=== PATIENT | male | born 1975 | race Caucasian/White ===

== ENCOUNTER 2018-12-31 11:12 | Observation (INO) | payer SELFPAY ==
[2018-12-31] MEDS ORDERED: Aspirin 81 MG Tab.Chew PO ONE (11:23)
[2018-12-31] MEDS ORDERED: Sodium Chloride 0.9% 10 ML Syringe FLUSH PRN (11:24)
[2018-12-31] MEDS ORDERED: Sodium Chloride 0.9% 2.5 ML Syringe FLUSH PRN (11:24)
--- NOTE | 2018-12-31 11:26 | EDM.PDOC ---
ED HPI GENERAL MEDICAL PROBLEM - General Stated Complaint: SOB Time Seen by Provider: 12/31/18 11:18 Source of Information: Reports: Patient History Limitations: Reports: No Limitations - History of Present Illness INITIAL COMMENTS - FREE TEXT/NARRATIVE: History of present illness: []Was sitting in his truck and hour ago when he started having left-sided 6/10 on radiating chest pain with sweating. She has a history of high blood pressure and high cholesterol but has never had any cardiac history or previous episodes of chest pain. Review of systems: As per history of present illness and below otherwise all systems reviewed and negative. Past medical history: As per history of present illness and as reviewed below otherwise noncontributory. Surgical history: As per history of present illness and as reviewed below otherwise noncontributory. Social history: No reported history of drug or alcohol abuse. Family history: As per history of present illness and as reviewed below otherwise noncontributory. Physical exam: General: Well developed, well nourished in NAD HEENT: Atraumatic, normocephalic, pupils reactive, negative for conjunctival pallor or scleral icterus, mucous membranes moist, throat clear, neck supple, nontender, trachea midline. Lungs: Clear to auscultation, breath sounds equal bilaterally, chest nontender. Heart: S1S2, regular, negative for clicks, rubs, or JVD. Abdomen: NABS, Soft, nondistended, nontender. Negative for masses or hepatosplenomegaly. Negative for costovertebral tenderness. Pelvis: Stable nontender. Genitourinary: Deferred. Rectal: Deferred. Extremities: Atraumatic, negative for cords or calf pain. Neurovascular unremarkable. Neuro: Awake, alert, oriented. Cranial nerves II through XII unremarkable. Cerebellum unremarkable. Motor and sensory unremarkable throughout. Exam nonfocal. Skin:warm and dry Diagnostics: EKG, chest x-ray, CBC, chemistry, troponin, Therapeutics: Aspirin, nitroglycerin, Toradol, morphine Zofran ED Course: Improved Impression: Acute coronary syndrome Prescriptions: None Plan: Admit to hospitalist for rule out and further workup Definitive disposition and diagnosis as appropriate pending reevaluation and review of above. Chest Pain Score (Numeric/FACES): 0 - Related Data Allergies Allergy/AdvReac Type Severity Reaction Status Date / Time No Known Allergies Allergy Verified 12/31/18 11:23 Home Meds: Home Meds . [No Known Home Meds] 12/31/18 [History] ED ROS GENERAL - Review of Systems Review Of Systems: See Below ED EXAM, GENERAL - Physical Exam Exam: See Below Course - Vital Signs Last Recorded V/S: Last Vital Signs Temp 96.8 F 12/31/18 11:23 Pulse 75 12/31/18 13:00 Resp 18 12/31/18 11:38 BP 140/93 H 12/31/18 13:00 Pulse Ox 91 L 12/31/18 13:00 - Orders/Labs/Meds Orders: Active Orders 24 hr Category Date Time Status Patient Status [ADT] Stat ADT 12/31/18 12:40 Active Cardiac Monitoring [RC] . DIRECTED Care 12/31/18 12:55 Active EKG Documentation Completion [RC] STAT Care 12/31/18 11:24 Active Nitroglycerin [Nitrostat] Med 12/31/18 11:23 Active 0.4 mg SL Q5M PRN Sodium Chloride 0.9% [Saline Flush] Med 12/31/18 11:24 Active 10 ml FLUSH ASDIRECTED PRN Sodium Chloride 0.9% [Saline Flush] Med 12/31/18 11:24 Active 2.5 ml FLUSH ASDIRECTED PRN Saline Lock Insert [OM.PC] Stat Oth 12/31/18 11:24 Ordered Medication Orders Enoxaparin Sodium (Lovenox) 40 mg SUBCUT Q24H ETHAN Nitroglycerin (Nitrostat) 0.4 mg SL Q5M PRN PRN Reason: Chest Pain Last Admin: 12/31/18 12:50 Dose: 0.4 mg Admin: 12/31/18 11:33 Dose: 0.4 mg Sodium Chloride (Saline Flush) 10 ml FLUSH ASDIRECTED PRN PRN Reason: Keep Vein Open Last Admin: 12/31/18 11:34 Dose: 10 ml Sodium Chloride (Saline Flush) 2.5 ml FLUSH ASDIRECTED PRN PRN Reason: Keep Vein Open Last Admin: 12/31/18 11:34 Dose: 2.5 ml Labs: Laboratory Tests 12/31/18 12/31/18 Range/Units 11:28 11:28 WBC 8.61 (4.0-11.0) K/uL RBC 5.62 (4.50-5.90) M/uL Hgb 17.2 H (13.0-17.0) g/dL Hct 51.9 H (38.0-50.0) % MCV 92.3 (80.0-98.0) fL MCH 30.6 (27.0-32.0) pg MCHC 33.1 (31.0-37.0) g/dL RDW Std Deviation 42.8 (28.0-62.0) fl RDW Coeff of Odell 13 (11.0-15.0) % Plt Count 206 (150-400) K/uL MPV 10.90 (7.40-12.00) fL Neut % (Auto) 70.5 (48.0-80.0) % Lymph % (Auto) 17.0 (16.0-40.0) % [place] % (Auto) 10.6 (0.0-15.0) % Eos % (Auto) 1.3 (0.0-7.0) % Baso % (Auto) 0.6 (0.0-1.5) % Neut # (Auto) 6.1 H (1.4-5.7) K/uL Lymph # (Auto) 1.5 (0.6-2.4) K/uL [place] # (Auto) 0.9 H (0.0-0.8) K/uL Eos # (Auto) 0.1 (0.0-0.7) K/uL Baso # (Auto) 0.1 (0.0-0.1) K/uL Nucleated RBC % 0.0 /100WBC Nucleated RBCs # 0 K/uL Sodium 138 (136-148) mmol/L Potassium 4.6 (3.5-5.1) mmol/L Chloride 101 (98-107) mmol/L Carbon Dioxide 27.0 (21.0-32.0) mmol/L BUN 11 (7.0-18.0) mg/dL Creatinine 1.0 (0.8-1.3) mg/dL Est Cr Clr Drug Dosing 98.35 mL/min Estimated GFR (MDRD) > 60.0 ml/min Glucose 103 (74-106) mg/dL Calcium 8.9 (8.5-10.1) mg/dL Total Bilirubin 0.3 (0.2-1.0) mg/dL AST 10 L (15-37) IU/L ALT 46 (14-63) IU/L Alkaline Phosphatase 39 L (46-116) U/L Troponin I < 0.050 (0.000-0.056) ng/mL Total Protein 7.5 (6.4-8.2) g/dL Albumin 4.0 (3.4-5.0) g/dL Globulin 3.5 (2.6-4.0) g/dL Albumin/Globulin Ratio 1.1 (0.9-1.6) Meds: Medications Generic Name Dose Route Start Last Admin Trade Name Devenq PRN Reason Stop Dose Admin Enoxaparin Sodium 40 mg 12/31/18 13:45 Lovenox SUBCUT Q24H ETHAN Nitroglycerin 0.4 mg 12/31/18 11:23 12/31/18 12:50 Nitrostat SL 0.4 mg Q5M PRN Administration Chest Pain Sodium Chloride 10 ml 12/31/18 11:24 12/31/18 11:34 Saline Flush FLUSH 10 ml ASDIRECTED PRN Administration Keep Vein Open Sodium Chloride 2.5 ml 12/31/18 11:24 12/31/18 11:34 Saline Flush FLUSH 2.5 ml ASDIRECTED PRN Administration Keep Vein Open Discontinued Medications Generic Name Dose Route Start Last Admin Trade Name Devenq PRN Reason Stop Dose Admin Aspirin 324 mg 12/31/18 11:23 12/31/18 11:32 Aspirin PO 12/31/18 11:24 324 mg ONETIME ONE Administration Ketorolac Tromethamine 30 mg 12/31/18 12:35 12/31/18 12:48 Toradol IVPUSH 12/31/18 12:36 30 mg ONETIME ONE Administration Morphine Sulfate 2 mg 12/31/18 11:42 12/31/18 11:49 Morphine IVPUSH 12/31/18 11:43 2 mg ONETIME ONE Administration Nitroglycerin 1 gm 12/31/18 13:30 12/31/18 13:37 Nitro-Bid 2% TOP 12/31/18 13:31 1 gm ONETIME ONE Administration Nitroglycerin Confirm 12/31/18 13:31 12/31/18 13:37 Nitro-Bid 2% Administered 12/31/18 13:32 Not Given Dose 1 gm .ROUTE .STK-MED ONE Ondansetron HCl 4 mg 12/31/18 11:42 12/31/18 11:53 Zofran IVPUSH 12/31/18 11:43 4 mg ONETIME ONE Administration Departure - Departure Time of Disposition: 13:43 Disposition: Refer to Observation Condition: Good Clinical Impression: Chest pain Qualifiers: Chest pain type: unspecified Qualified Code(s): R07.9 - Chest pain, unspecified - My Orders Last 24 Hours: My Active Orders 12/31/18 11:23 Nitroglycerin [Nitrostat] 0.4 mg SL Q5M PRN 12/31/18 11:24 EKG Documentation Completion [RC] STAT Sodium Chloride 0.9% [Saline Flush] 10 ml FLUSH ASDIRECTED PRN Sodium Chloride 0.9% [Saline Flush] 2.5 ml FLUSH ASDIRECTED PRN Saline Lock Insert [OM.PC] Stat 12/31/18 12:40 Patient Status [ADT] Stat 12/31/18 12:55 Cardiac Monitoring [RC] . DIRECTED - Assessment/Plan Last 24 Hours: My Active Orders 12/31/18 11:23 Nitroglycerin [Nitrostat] 0.4 mg SL Q5M PRN 12/31/18 11:24 EKG Documentation Completion [RC] STAT Sodium Chloride 0.9% [Saline Flush] 10 ml FLUSH ASDIRECTED PRN Sodium Chloride 0.9% [Saline Flush] 2.5 ml FLUSH ASDIRECTED PRN Saline Lock Insert [OM.PC] Stat 12/31/18 12:40 Patient Status [ADT] Stat 12/31/18 12:55 Cardiac Monitoring [RC] . DIRECTED
[2018-12-31] MEDS: Nitroglycerin 0.4 MG Tab.SL SL PRN ×2 (11:33→12:50)
[2018-12-31] MEDS ORDERED: Morphine 2 MG/ML Syringe IVPUSH ONE (11:42)
[2018-12-31] MEDS ORDERED: Ondansetron 4 MG/2 ML SDV IVPUSH ONE (11:42)
[2018-12-31 12:22] LABS: BLOOD UREA NITROGEN,BUN 11 mg/dL (7.0-18.0); CHLORIDE,CL 101 mmol/L (98-107); GLUCOSE RANDOM 103 mg/dL (74-106); POTASSIUM,K 4.6 mmol/L (3.5-5.1); SODIUM,NA 138 mmol/L (136-148)
[2018-12-31] MEDS ORDERED: Ketorolac 30 MG/ML SDV IVPUSH ONE (12:35)
--- NOTE | 2018-12-31 12:42 | CR ---
INDICATION: Chest pain. Left arm numbness. TECHNIQUE: AP portable chest x-ray. FINDINGS: Heart size is within normal limits. Lungs are clear without infiltrate or consolidation. Degenerative changes both AC joints. Mild linear atelectasis or scarring in the left lung base. Chest otherwise negative without acute disease. Dictated by Jose Nobles MD @ Dec 31 2018 12:40PM Signed by Dr. Jose Nobles @ Dec 31 2018 12:40PM
[2018-12-31] MEDS ORDERED: Nitroglycerin 2% Oint 1 GM UD Packet TOP ONE (13:30)
[2018-12-31] MEDS ORDERED: Nitroglycerin 2% Oint 1 GM UD Packet ONE (13:31)
--- NOTE | 2018-12-31 13:42 | PCM.HP.2 ---
H&P History of Present Illness - General Date of Service: 12/31/18 Admit Problem/Dx: Admission Diagnosis/Problem Admission Diagnosis/Problem Chest pain - History of Present Illness Initial Comments - Free Text/Narative: patient is a 43-year-old male with a significant past medical history of hypertension and hypercholesterolemia presenting today after experiencing left- sided chest pain with left arm numbness for roughly one hour. Patient states one hour ago he had a 6 out of 10 pressure-like sensation behind the left nipple with radiation of pain into left arm with numbness. States he has never experienced this type of sensation or pain before; and has never had any significant cardiac history. Patient did have momentary sensation of shortness of breath which had resolved as pain had resolved. Otherwise denies any new medications or changes in medical history. Patient denies any fevers, chills, body aches. Denies any diarrhea, constipation. Does endorse drinking 6-12 beers per night. Has not smoked cigarettes or use any other illicit drugs since 1997. Patient does endorse some history of mild anxiety; but cannot recall any episodes of panic attacks or anxiety attacks recently; does mention having some increased stress in his life but cannot recall any particular trigger at this time. Bedside: patient endorses at bedside reduction in pain; states it's now a 1 or 2 out of 10 in the same area. Denies any shortness of breath. States he feels comfortable and stable right now. Has no other issues or complaints at this time. Chest Pain Score (Numeric/FACES): 0 - Related Data Allergies/Adverse Reactions: Allergies Allergy/AdvReac Type Severity Reaction Status Date / Time No Known Allergies Allergy Verified 12/31/18 11:23 Home Medications: Home Meds . [No Known Home Meds] 12/31/18 [History] Past Medical History Cardiovascular History: Reports: High Cholesterol, Hypertension - Infectious Disease History Infectious Disease History: Reports: Chicken Pox - Past Surgical History Cardiovascular Surgical History: Reports: None Other Musculoskeletal Surgeries/Procedures:: Left ACL and Left thigh surgery Social & Family History - Family History Family Medical History: Noncontributory - Tobacco Use Smoking Status *Q: Former Smoker Years of Tobacco use: 30 Packs/Tins Daily: 1 Used Tobacco, but Quit: Yes Month/Year Tobacco Last Used: 21 Second Hand Smoke Exposure: No - Caffeine Use Caffeine Use: Reports: Tea - Alcohol Use Days Per Week of Alcohol Use: 1 Number of Drinks Per Day: 1 Total Drinks Per Week: 1 - Recreational Drug Use Recreational Drug Use: No H&P Review of Systems - Review of Systems: Review Of Systems: See Below General: Reports: No Symptoms. Denies: Fever, Chills, Malaise HEENT: Reports: No Symptoms Pulmonary: Reports: No Symptoms. Denies: Shortness of Breath, Wheezing, Cough Cardiovascular: Reports: Chest Pain (left chest : improving 04/23 ). Denies: Palpitations, Dyspnea on Exertion, Edema, Lightheadedness Gastrointestinal: Denies: Abdominal Pain, Constipation, Diarrhea, Decreased Appetite, Nausea Genitourinary: Reports: No Symptoms. Denies: Dysuria, Frequency, Burning, Pain Musculoskeletal: Denies: Neck Pain, Shoulder Pain, Arm Pain, Back Pain, Muscle Pain Skin: Reports: No Symptoms Psychiatric: Reports: Anxiety. Denies: Confusion, Depression Neurological: Reports: Headache. Denies: Confusion, Dizziness Exam - Exam Exam: See Below - Vital Signs Vital Signs: Last Vital Signs Temp 96.8 F 12/31/18 11:23 Pulse 75 12/31/18 13:00 Resp 18 12/31/18 11:38 BP 140/93 H 12/31/18 13:00 Pulse Ox 91 L 12/31/18 13:00 Weight: 216 lb 3.175 oz - Exam Quality Assessment: No: Supplemental Oxygen General: Alert, Oriented, Cooperative HEENT: Conjunctiva Clear, EOMI, Mucosa Moist & [place] Neck: Supple, Trachea Midline Lungs: Clear to Auscultation, Normal Respiratory Effort Cardiovascular: Regular Rate, Regular Rhythm, Normal S1, Normal S2, Other (MSK: bump/elevation w/ tenderness between sternum and xiphoid process. no fluctuance , appears bony in nature ) GI/Abdominal Exam: Normal Bowel Sounds (left lower quadrant tenderness w/ deep palpation; no rebound tenderness, no organomegaly ) Back Exam: Normal Inspection Extremities: Normal Inspection, Normal Range of Motion Skin: Warm, Dry, Intact Neurological: Cranial Nerves Intact Neuro Extensive - Mental Status: Alert, Oriented x3, Normal Mood/Affect Neuro Extensive - Motor, Sensory, Reflexes: CN II-XII Intact, Normal Reflexes Psychiatric: Alert, Normal Affect - Patient Data Lab Results Last 24 hrs: Laboratory Results - last 24 hr 12/31/18 12/31/18 Range/Units 11:28 11:28 WBC 8.61 (4.0-11.0) K/uL RBC 5.62 (4.50-5.90) M/uL Hgb 17.2 H (13.0-17.0) g/dL Hct 51.9 H (38.0-50.0) % MCV 92.3 (80.0-98.0) fL MCH 30.6 (27.0-32.0) pg MCHC 33.1 (31.0-37.0) g/dL RDW Std Deviation 42.8 (28.0-62.0) fl RDW Coeff of Odell 13 (11.0-15.0) % Plt Count 206 (150-400) K/uL MPV 10.90 (7.40-12.00) fL Neut % (Auto) 70.5 (48.0-80.0) % Lymph % (Auto) 17.0 (16.0-40.0) % [place] % (Auto) 10.6 (0.0-15.0) % Eos % (Auto) 1.3 (0.0-7.0) % Baso % (Auto) 0.6 (0.0-1.5) % Neut # (Auto) 6.1 H (1.4-5.7) K/uL Lymph # (Auto) 1.5 (0.6-2.4) K/uL [place] # (Auto) 0.9 H (0.0-0.8) K/uL Eos # (Auto) 0.1 (0.0-0.7) K/uL Baso # (Auto) 0.1 (0.0-0.1) K/uL Nucleated RBC % 0.0 /100WBC Nucleated RBCs # 0 K/uL Sodium 138 (136-148) mmol/L Potassium 4.6 (3.5-5.1) mmol/L Chloride 101 (98-107) mmol/L Carbon Dioxide 27.0 (21.0-32.0) mmol/L BUN 11 (7.0-18.0) mg/dL Creatinine 1.0 (0.8-1.3) mg/dL Est Cr Clr Drug Dosing 98.35 mL/min Estimated GFR (MDRD) > 60.0 ml/min Glucose 103 (74-106) mg/dL Calcium 8.9 (8.5-10.1) mg/dL Total Bilirubin 0.3 (0.2-1.0) mg/dL AST 10 L (15-37) IU/L ALT 46 (14-63) IU/L Alkaline Phosphatase 39 L (46-116) U/L Troponin I < 0.050 (0.000-0.056) ng/mL Total Protein 7.5 (6.4-8.2) g/dL Albumin 4.0 (3.4-5.0) g/dL Globulin 3.5 (2.6-4.0) g/dL Albumin/Globulin Ratio 1.1 (0.9-1.6) Result Diagrams: 12/31/18 11:28 12/31/18 11:28 Problem List Initiated/Reviewed/Updated: Yes Orders Last 24hrs: Active Orders 24 hr Category Date Time Status Patient Status [ADT] Stat ADT 12/31/18 12:40 Active Activity as Tolerated [RC] .Routine Care 12/31/18 13:37 Ordered Cardiac Monitoring [RC] . DIRECTED Care 12/31/18 12:55 Active EKG Documentation Completion [RC] STAT Care 12/31/18 11:24 Active Intake and Output [RC] ASDIRECTED Care 12/31/18 13:33 Ordered Telemetry Monitoring [Cardiac Monitoring] [RC] . Care 12/31/18 12:55 Active DIRECTED Telemetry Monitoring [Cardiac Monitoring] [RC] . Care 12/31/18 13:34 Ordered DIRECTED Vital Signs [RC] PER UNIT ROUTINE Care 12/31/18 13:33 Ordered Heart Healthy Diet [DIET] Diet 12/31/18 Dinner Ordered LIPASE [CHEM] Routine Lab 12/31/18 13:33 Ordered TROPONIN I [CHEM] Q6H Lab 12/31/18 17:30 Ordered TROPONIN I [CHEM] Q6H Lab 12/31/18 23:30 Ordered Enoxaparin [Lovenox] Med 12/31/18 13:45 Ordered 40 mg SUBCUT Q24H Nitroglycerin [Nitro-Bid 2%] Med 12/31/18 13:30 Once 1 gm TOP ONETIME ONE Nitroglycerin [Nitrostat] Med 12/31/18 11:23 Active 0.4 mg SL Q5M PRN Sodium Chloride 0.9% [Saline Flush] Med 12/31/18 11:24 Active 10 ml FLUSH ASDIRECTED PRN Sodium Chloride 0.9% [Saline Flush] Med 12/31/18 11:24 Active 2.5 ml FLUSH ASDIRECTED PRN Saline Lock Insert [OM.PC] Stat Oth 12/31/18 11:24 Ordered Code Status [Resuscitation Status] Routine Resus Stat 12/31/18 13:33 Ordered Medication Orders Enoxaparin Sodium (Lovenox) 40 mg SUBCUT Q24H ETHAN Nitroglycerin (Nitrostat) 0.4 mg SL Q5M PRN PRN Reason: Chest Pain Last Admin: 12/31/18 12:50 Dose: 0.4 mg Admin: 12/31/18 11:33 Dose: 0.4 mg Sodium Chloride (Saline Flush) 10 ml FLUSH ASDIRECTED PRN PRN Reason: Keep Vein Open Last Admin: 12/31/18 11:34 Dose: 10 ml Sodium Chloride (Saline Flush) 2.5 ml FLUSH ASDIRECTED PRN PRN Reason: Keep Vein Open Last Admin: 12/31/18 11:34 Dose: 2.5 ml Assessment/Plan Comment:: Assessment 1. Chest pain with ACS rule out. 2. Costochondritis 3. Past medical history of hypercholesterolemia, hypertension, anxiety Plan Admit to observation. Full code. Intake output per routine. Vitals per routine. Telemetry. DVT prophylaxis: Lovenox 40. GI prophylaxis: pantoprazole 40. Activity up ad panchito.. diet: heart healthy 1. Continue to trend troponin every 6 hours. We'll add on a lipase level secondary to alcohol use.Continue telemetry. Pain control: morphine 1 mg every 4 hours when necessary. Tylenol. Nitroglycerin sublingual when necessary. Aspirin already administered in the ER. Denies history of illicit drug use, recent tobacco use, excessive caffeine or [id number] stimulants. 2. Costochondritis: continue to monitor 3. Past medical history: continue all medications
[2018-12-31] MEDS ORDERED: Enoxaparin 40 MG/0.4 ML Syringe SUBCUT SCH (13:45)
[2018-12-31] MEDS ORDERED: Morphine 2 MG/ML Syringe IVPUSH PRN (13:48)
[2018-12-31] MEDS ORDERED: Acetaminophen 325 MG Tab PO PRN (13:49)
[2018-12-31] MEDS ORDERED: Melatonin 3 MG Tab PO PRN (13:50)
[2018-12-31] MEDS ORDERED: Docusate Sodium 100 MG Cap PO PRN (13:51)
[2018-12-31] MEDS: Pantoprazole 40 MG Tab.CR PO SCH (14:54)
[2018-12-31] MEDS ORDERED: LORazepam 2 MG/ML SDV IV PRN (15:49)
[2018-12-31] MEDS: Lisinopril 5 MG Tab PO SCH (21:16)
[2019-01-01 07:18] LABS: BLOOD UREA NITROGEN,BUN 11 mg/dL (7.0-18.0); CARBON DIOXIDE,CO2 27.2 mmol/L (21.0-32.0); CHLORIDE,CL 103 mmol/L (98-107); GLUCOSE RANDOM 97 mg/dL (74-106); POTASSIUM,K 4.6 mmol/L (3.5-5.1); SODIUM,NA 139 mmol/L (136-148)
[2019-01-01] MEDS: Lisinopril 5 MG Tab PO SCH (08:44)
[2019-01-01] MEDS: Pantoprazole 40 MG Tab.CR PO SCH (08:44)
[2019-01-01] MEDS ORDERED: Rosuvastatin 10 MG Tab PO SCH (09:00)
--- NOTE | 2019-01-01 18:42 | PCM.DCSUM1 ---
<Darlyn Nguyen - Last Filed: 01/01/19 18:24> Discharge Summary - Hospital Course Free Text/Narrative:: Discharge summary Admission date December 31 2018 Discharge date 2018 Admission diagnoses: chest pain with ACS rule out Costochondritis Past medical history: anxiety, hypertension, hypercholesterolemia Discharge diagnoses: chest pain with ACS ruled out Costochondritis Past medical history: anxiety, hypertension, hypercholesterolemia Consultations: None Procedures: none Hospital course: patient is a 42-year-old male with past medical history of anxiety hypertension hypercholesterolemia presenting yesterday in the a.m. with 1 hour of left-sided chest pain predominantly behind the left nipple with left arm numbness. Patient also had some mild shortness of breath with's sweating and was concerned about having a heart attack; presented to [facility] ED. ED course initial troponin negative , EKG showed no ST elevations. Patient was admitted overnight for trending of troponins. Concerns about alcohol consumption: 6-12 beers a night; placed on CIWAA and Ativan protocol; only requiring 1 Ativan. Following morning patient was stable; denied any chest pain. requesting to go home. Chest/costochondritis stable. Discharge condition:Stable Disposition: Home Home medications :lisinopril, simvastatin, pantoprazole Discharge instructions: Follow-up: Follow up with PCP in 1-week - Discharge Data Discharge Date: 01/01/19 Discharge Disposition: Home, Self-Care 01 Condition: Stable - Referral to Home Health Primary Care Physician: PCP Not In Area - Patient Instructions Diet: Heart Healthy Diet Driving: May Drive Today Showering/Bathing: May Shower Notify Provider of: Fever, Increased Pain, Swelling and Redness, Nausea and/or Vomiting Other/Special Instructions: Follow up with your PCP regarding other non-cardiac causes of your chest pain e.g :GERD, anxiety etc. NOtify providor if symptoms of fever, chills, body aches, increasing chest pain, shortness of breath or new symptoms against your baseline develop. Cut back on alcohol consumption. Do not smoke - Discharge Plan *PRESCRIPTION DRUG MONITORING PROGRAM REVIEWED*: No *COPY OF PRESCRIPTION DRUG MONITORING REPORT IN PATIENT MARLEY: No Home Medications: Home Meds Lisinopril 1 tab PO BID 12/31/18 [History] Rosuvastatin Calcium 5 mg PO DAILY 12/31/18 [History] Acetaminophen [Tylenol] 650 mg PO Q4H PRN tablet 01/01/19 [Rx] Docusate Sodium [Colace] 100 mg PO DAILY PRN cap 01/01/19 [Rx] Pantoprazole [ProTONIX] 40 mg PO DAILY tab.cr 01/01/19 [Rx] Patient Handouts: Nonspecific Chest Pain, [id number] - Discharge Summary/Plan Comment DC Time >30 min.: No - Patient Data Vitals - Most Recent: Last Vital Signs Temp 97.4 F 01/01/19 07:30 Pulse 67 01/01/19 07:30 Resp 18 01/01/19 07:30 BP 126/80 01/01/19 08:44 Pulse Ox 94 L 01/01/19 07:30 Weight - Most Recent: 98.066 kg I&O - Last 24 hours: Intake & Output 01/01/19 01/01/19 01/01/19 06:59 14:59 22:59 Intake Total 600 400 Output Total 300 Balance 300 400 Lab Results - Last 24 hrs: Laboratory Results - last 24 hr 12/31/18 01/01/19 01/01/19 Range/Units 23:30 05:51 05:51 WBC 9.31 (4.0-11.0) K/uL RBC 5.37 (4.50-5.90) M/uL Hgb 16.4 (13.0-17.0) g/dL Hct 50.5 H (38.0-50.0) % MCV 94.0 (80.0-98.0) fL MCH 30.5 (27.0-32.0) pg MCHC 32.5 (31.0-37.0) g/dL RDW Std Deviation 44.2 (28.0-62.0) fl RDW Coeff of Odell 13 (11.0-15.0) % Plt Count 197 (150-400) K/uL MPV 11.10 (7.40-12.00) fL Neut % (Auto) 68.9 (48.0-80.0) % Lymph % (Auto) 15.5 L (16.0-40.0) % Garza % (Auto) 13.1 (0.0-15.0) % Eos % (Auto) 2.1 (0.0-7.0) % Baso % (Auto) 0.4 (0.0-1.5) % Neut # (Auto) 6.4 H (1.4-5.7) K/uL Lymph # (Auto) 1.4 (0.6-2.4) K/uL Garza # (Auto) 1.2 H (0.0-0.8) K/uL Eos # (Auto) 0.2 (0.0-0.7) K/uL Baso # (Auto) 0.0 (0.0-0.1) K/uL Nucleated RBC % 0.0 /100WBC Nucleated RBCs # 0 K/uL Sodium 139 (136-148) mmol/L Potassium 4.6 (3.5-5.1) mmol/L Chloride 103 (98-107) mmol/L Carbon Dioxide 27.2 (21.0-32.0) mmol/L BUN 11 (7.0-18.0) mg/dL Creatinine 1.0 (0.8-1.3) mg/dL Est Cr Clr Drug Dosing 98.35 mL/min Estimated GFR (MDRD) > 60.0 ml/min Glucose 97 (74-106) mg/dL Calcium 8.2 L (8.5-10.1) mg/dL Total Bilirubin 0.5 (0.2-1.0) mg/dL AST 9 L (15-37) IU/L ALT 39 (14-63) IU/L Alkaline Phosphatase 36 L (46-116) U/L Troponin I < 0.050 (0.000-0.056) ng/mL Total Protein 6.5 (6.4-8.2) g/dL Albumin 3.4 (3.4-5.0) g/dL Globulin 3.1 (2.6-4.0) g/dL Albumin/Globulin Ratio 1.1 (0.9-1.6) Med Orders - Current: Current Medications Discontinued Medications Acetaminophen (Tylenol) 650 mg PO Q4H PRN PRN Reason: Fever Last Admin: 12/31/18 16:34 Dose: 650 mg Aspirin (Aspirin) 324 mg PO ONETIME ONE Stop: 12/31/18 11:24 Last Admin: 12/31/18 11:32 Dose: 324 mg Docusate Sodium (Colace) 100 mg PO DAILY PRN PRN Reason: Constipation Enoxaparin Sodium (Lovenox) 40 mg SUBCUT Q24H [facility] Last Admin: 12/31/18 14:54 Dose: 40 mg Ketorolac Tromethamine (Toradol) 30 mg IVPUSH ONETIME ONE Stop: 12/31/18 12:36 Last Admin: 12/31/18 12:48 Dose: 30 mg Lisinopril (Prinivil) 5 mg PO BID [facility] Last Admin: 01/01/19 08:44 Dose: 5 mg Lorazepam (Ativan) 0 mg IV Q4H PRN; Protocol PRN Reason: Agitation Melatonin (Melatonin) 3 mg PO BEDTIME PRN PRN Reason: Insomnia Morphine Sulfate (Morphine) 2 mg IVPUSH ONETIME ONE Stop: 12/31/18 11:43 Last Admin: 12/31/18 11:49 Dose: 2 mg Morphine Sulfate (Morphine) 1 mg IVPUSH Q4H PRN PRN Reason: Chest Pain Nitroglycerin (Nitrostat) 0.4 mg SL Q5M PRN PRN Reason: Chest Pain Last Admin: 12/31/18 12:50 Dose: 0.4 mg Nitroglycerin (Nitro-Bid 2%) 1 gm TOP ONETIME ONE Stop: 12/31/18 13:31 Last Admin: 12/31/18 13:37 Dose: 1 gm Nitroglycerin (Nitro-Bid 2%) Confirm Administered Dose 1 gm .ROUTE .STK-MED ONE Stop: 12/31/18 13:32 Last Admin: 12/31/18 13:37 Dose: Not Given Ondansetron HCl (Zofran) 4 mg IVPUSH ONETIME ONE Stop: 12/31/18 11:43 Last Admin: 12/31/18 11:53 Dose: 4 mg Pantoprazole Sodium (Protonix) 40 mg PO DAILY [facility] Last Admin: 01/01/19 08:44 Dose: 40 mg Rosuvastatin Calcium (Crestor) 5 mg PO DAILY [facility] Last Admin: 01/01/19 08:43 Dose: 5 mg Sodium Chloride (Saline Flush) 10 ml FLUSH ASDIRECTED PRN PRN Reason: Keep Vein Open Last Admin: 12/31/18 11:34 Dose: 10 ml Sodium Chloride (Saline Flush) 2.5 ml FLUSH ASDIRECTED PRN PRN Reason: Keep Vein Open Last Admin: 12/31/18 11:34 Dose: 2.5 ml <Bhavin Hernández J - Last Filed: 01/01/19 18:52> Discharge Summary - Referral to Home Health Primary Care Physician: PCP Not In Area - Patient Data Vitals - Most Recent: Last Vital Signs Temp 36.3 C 01/01/19 07:30 Pulse 67 01/01/19 07:30 Resp 18 01/01/19 07:30 BP 126/80 01/01/19 08:44 Pulse Ox 94 L 01/01/19 07:30 I&O - Last 24 hours: Intake & Output 01/01/19 01/01/19 01/01/19 06:59 14:59 22:59 Intake Total 600 400 Output Total 300 Balance 300 400 Lab Results - Last 24 hrs: Laboratory Results - last 24 hr 12/31/18 01/01/19 01/01/19 Range/Units 23:30 05:51 05:51 WBC 9.31 (4.0-11.0) K/uL RBC 5.37 (4.50-5.90) M/uL Hgb 16.4 (13.0-17.0) g/dL Hct 50.5 H (38.0-50.0) % MCV 94.0 (80.0-98.0) fL MCH 30.5 (27.0-32.0) pg MCHC 32.5 (31.0-37.0) g/dL RDW Std Deviation 44.2 (28.0-62.0) fl RDW Coeff of Odell 13 (11.0-15.0) % Plt Count 197 (150-400) K/uL MPV 11.10 (7.40-12.00) fL Neut % (Auto) 68.9 (48.0-80.0) % Lymph % (Auto) 15.5 L (16.0-40.0) % Garza % (Auto) 13.1 (0.0-15.0) % Eos % (Auto) 2.1 (0.0-7.0) % Baso % (Auto) 0.4 (0.0-1.5) % Neut # (Auto) 6.4 H (1.4-5.7) K/uL Lymph # (Auto) 1.4 (0.6-2.4) K/uL Garza # (Auto) 1.2 H (0.0-0.8) K/uL Eos # (Auto) 0.2 (0.0-0.7) K/uL Baso # (Auto) 0.0 (0.0-0.1) K/uL Nucleated RBC % 0.0 /100WBC Nucleated RBCs # 0 K/uL Sodium 139 (136-148) mmol/L Potassium 4.6 (3.5-5.1) mmol/L Chloride 103 (98-107) mmol/L Carbon Dioxide 27.2 (21.0-32.0) mmol/L BUN 11 (7.0-18.0) mg/dL Creatinine 1.0 (0.8-1.3) mg/dL Est Cr Clr Drug Dosing 98.35 mL/min Estimated GFR (MDRD) > 60.0 ml/min Glucose 97 (74-106) mg/dL Calcium 8.2 L (8.5-10.1) mg/dL Total Bilirubin 0.5 (0.2-1.0) mg/dL AST 9 L (15-37) IU/L ALT 39 (14-63) IU/L Alkaline Phosphatase 36 L (46-116) U/L Troponin I < 0.050 (0.000-0.056) ng/mL Total Protein 6.5 (6.4-8.2) g/dL Albumin 3.4 (3.4-5.0) g/dL Globulin 3.1 (2.6-4.0) g/dL Albumin/Globulin Ratio 1.1 (0.9-1.6) Med Orders - Current: Current Medications Discontinued Medications Acetaminophen (Tylenol) 650 mg PO Q4H PRN PRN Reason: Fever Last Admin: 12/31/18 16:34 Dose: 650 mg Aspirin (Aspirin) 324 mg PO ONETIME ONE Stop: 12/31/18 11:24 Last Admin: 12/31/18 11:32 Dose: 324 mg Docusate Sodium (Colace) 100 mg PO DAILY PRN PRN Reason: Constipation Enoxaparin Sodium (Lovenox) 40 mg SUBCUT Q24H [facility] Last Admin: 12/31/18 14:54 Dose: 40 mg Ketorolac Tromethamine (Toradol) 30 mg IVPUSH ONETIME ONE Stop: 12/31/18 12:36 Last Admin: 12/31/18 12:48 Dose: 30 mg Lisinopril (Prinivil) 5 mg PO BID [facility] Last Admin: 01/01/19 08:44 Dose: 5 mg Lorazepam (Ativan) 0 mg IV Q4H PRN; Protocol PRN Reason: Agitation Melatonin (Melatonin) 3 mg PO BEDTIME PRN PRN Reason: Insomnia Morphine Sulfate (Morphine) 2 mg IVPUSH ONETIME ONE Stop: 12/31/18 11:43 Last Admin: 12/31/18 11:49 Dose: 2 mg Morphine Sulfate (Morphine) 1 mg IVPUSH Q4H PRN PRN Reason: Chest Pain Nitroglycerin (Nitrostat) 0.4 mg SL Q5M PRN PRN Reason: Chest Pain Last Admin: 12/31/18 12:50 Dose: 0.4 mg Nitroglycerin (Nitro-Bid 2%) 1 gm TOP ONETIME ONE Stop: 12/31/18 13:31 Last Admin: 12/31/18 13:37 Dose: 1 gm Nitroglycerin (Nitro-Bid 2%) Confirm Administered Dose 1 gm .ROUTE .STK-MED ONE Stop: 12/31/18 13:32 Last Admin: 12/31/18 13:37 Dose: Not Given Ondansetron HCl (Zofran) 4 mg IVPUSH ONETIME ONE Stop: 12/31/18 11:43 Last Admin: 12/31/18 11:53 Dose: 4 mg Pantoprazole Sodium (Protonix) 40 mg PO DAILY [facility] Last Admin: 01/01/19 08:44 Dose: 40 mg Rosuvastatin Calcium (Crestor) 5 mg PO DAILY [facility] Last Admin: 01/01/19 08:43 Dose: 5 mg Sodium Chloride (Saline Flush) 10 ml FLUSH ASDIRECTED PRN PRN Reason: Keep Vein Open Last Admin: 12/31/18 11:34 Dose: 10 ml Sodium Chloride (Saline Flush) 2.5 ml FLUSH ASDIRECTED PRN PRN Reason: Keep Vein Open Last Admin: 12/31/18 11:34 Dose: 2.5 ml - Free Text/Narrative Note: I have seen and evaluated the patient with the resident. I have discussed findings and treatment plan with the resident. I agree with the assessment and plan outlined in the following note.
== END 2019-01-01 11:22 | disposition home or self-care (01) ==
LOC: MW.ED 11:12 → MW.MS 12:56
PROVIDERS: ADMIT Internal Medicine; ATTEND Internal Medicine
DX: M94.0 Chondrocostal junction syndrome [Tietze] (principal); I10 Essential (primary) hypertension; E78.00 Pure hypercholesterolemia, unspecified; F41.9 Anxiety disorder, unspecified; Z87.891 Personal history of nicotine dependence; Z79.899 Other long term (current) drug therapy
CPT/HCPCS: 36415; 71045; 80053; 83690; 84484; 85025; 93005; 96374; 96375; 99285; A9270; J1650; J1885; J2270; J2405; 96372; 99284; G0378